=== PATIENT | male | born 1980 | race Hispanic/Latino ===

== ENCOUNTER 2021-03-01 17:11 | Emergency (ER) | payer SELFPAY ==
[2021-03-01] MEDS ORDERED: MORPHINE 4 MG/ML SYR ONE (20:47)
[2021-03-01] MEDS ORDERED: ONDANSETRON 4 MG/2 ML VIAL ONE (20:47)
[2021-03-01] MEDS ORDERED: CLINDAMYCIN 900MG/D5W 900 MG/50 ML IVPB IV ONE (20:47)
--- NOTE | 2021-03-01 21:03 | EDPHYS ---
Physician Documentation [facility] Name: Gama Hanley Age: 40 yrs Sex: Male : 1980 Arrival Date: 03/01/2021 Time: 17:14 Bed 30 Private MD: ED Physician Ranjit Avila HPI: 03/01 20:03 This 40 yrs old Male presents to ER via Ambulatory with complaints of Abscess, jmm Facial Swelling. 20:03 The patient presents with swelling. Onset: The symptoms/episode began/occurred jmm gradually, 3 day(s) ago. Duration: The symptoms are continuous, and are steadily getting worse. Modifying factors: The symptoms are alleviated by nothing, the symptoms are aggravated by nothing. Associated signs and symptoms: Pertinent positives: swelling, Pertinent negatives: fever. The patient has experienced similar episodes in the past, but today's symptoms are worse. Historical: - Allergies: 17:28 slobed; ll1 17:28 Dimetapp Cold-Allergy (PE); ll1 - PMHx: 17:28 Asthma; ll1 - PSHx: 17:28 None; ll1 - Immunization history:: Flu vaccine is not up to date. - Social history:: Smoking status: Patient reports the use of cigarette tobacco products, denies chronic smoking, but will smoke occasionally. ROS: 20:03 Constitutional: Negative for fever, chills, and weight loss, Cardiovascular: Negative jmm for chest pain, palpitations, and edema, Respiratory: Negative for shortness of breath, cough, wheezing, and pleuritic chest pain. 20:03 ENT: Positive for dental pain. 20:03 All other systems are negative. Exam: 20:03 Constitutional: This is a well developed, well nourished patient who is awake, alert, jmm and in no acute distress. Head/Face: atraumatic. Eyes: EOMI, no conjunctival erythema appreciated 20:03 Neck: Trachea midline, Supple Chest/axilla: Normal chest wall appearance and motion. Cardiovascular: Regular rate and rhythm. No edema appreciated Respiratory: Normal respirations, no respiratory distress appreciated Abdomen/GI: Non distended, soft Back: Normal ROM Skin: General appearance color normal MS/ Extremity: Moves all extremities, no obvious deformities appreciated, no edema noted to the lower extremities Neuro: Awake and alert, normal gait Psych: Behavior is normal, Mood is normal, Patient is cooperative and pleasant 20:03 ENT: Dental exam: gum swelling, that is moderate, specifically in the upper right first molar (#3), upper right second bicuspid (#4) and upper right first bicuspid (#5). Vital Signs: 17:26 BP 180 / 115; Pulse 88; Resp 17; Temp 99.4; Pulse Ox 95% ; Weight 104.33 kg; Height 5 ll1 ft. 11 in. (180.34 cm); Pain 9/10; 17:26 Body Mass Index 32.08 (104.33 kg, 180.34 cm) ll1 MDM: 20:03 Patient medically screened. timbo 21:01 Data reviewed: vital signs, nurses notes. Counseling: I had a detailed discussion with melisa the patient and/or guardian regarding: the historical points, exam findings, and any diagnostic results supporting the discharge/admit diagnosis, the need for outpatient follow up, to return to the emergency department if symptoms worsen or persist or if there are any questions or concerns that arise at home. ED course: Patient is alert and non toxic in appearance. I do not suspect sepsis, ludwigs. Patient advised to follow up with pcp and otherwise given strict return precautions. patient understood and agrees with the plan of care. . 03/01 20:14 Order name: Saline Lock; Complete Time: 20:59 melisa Administered Medications: 20:45 Drug: morphine 4 mg Route: IVP; Site: right antecubital; iw 20:45 Drug: Zofran (Ondansetron) 4 mg Route: IVP; Site: right antecubital; iw 20:53 Drug: Clindamycin 900 mg Route: IVPB; Infused Over: 30 mins; Site: right antecubital; iw Disposition: 03/02 12:21 Co-signature as Attending Physician, Ranjit Avila MD I agree with the assessment and [facility] plan of care. Disposition: 03/01/21 21:02 Discharged to Home. Impression: Dental Abscess. - Condition is Stable. - Discharge Instructions: Dental Abscess. - Prescriptions for Peridex 0.12 % Mucous Membrane mouthwash - place 15 milliliter by MUCOUS MEMBRANE route 2 times per day after brushing teeth, swish in mouth for 30 seconds then spit out; 1 bottle. Clindamycin HCl 300 mg Oral Capsule - take 1 capsule by ORAL route every 6 hours for 10 days; 40 capsule. Tylenol- Codeine #3 300-30 mg Oral Tablet - take 1 tablet by ORAL route every 4-6 hours As needed; 12 tablet. - Medication Reconciliation Form, Thank You Letter, Antibiotic Education, Prescription Opioid Use form. - Follow up: Private Physician; When: 2 - 3 days; Reason: Recheck today's complaints, Continuance of care, Re-evaluation by your physician. Signatures: Ranjit Avila MD MD cha Mickail, Joel, PA PA jmm Williams, Irene, RN RN iw Angelica Tavreas RN RN ll1 Corrections: (The following items were deleted from the chart) 03/01 21:51 21:02 03/01/2021 21:02 Discharged to Home. Impression: Dental Abscess. Condition is iw Stable. Forms are Medication Reconciliation Form, Thank You Letter, Antibiotic Education, Prescription Opioid Use. Follow up: Private Physician; When: 2 - 3 days; Reason: Recheck today's complaints, Continuance of care, Re-evaluation by your physician. melisa
--- NOTE | 2021-03-01 21:03 | ER ---
Nurse's Notes [facility] Name: Gama Hanley Age: 40 yrs Sex: Male : 1980 Arrival Date: 03/01/2021 Time: 17:14 Bed 30 Private MD: Diagnosis: Dental Abscess Presentation: 03/01 17:26 Chief complaint: Patient states: R upper jaw tooth pain for 1 week. R sided facial ll1 swelling for 3 days, worse for the past two days. No known fever. Coronavirus screen: Client denies travel out of the [place] in the last 14 days. Coronavirus screen: At this time, the client does not indicate any symptoms associated with coronavirus-19. Ebola Screen: Patient denies travel to an Ebola-affected area in the 21 days before illness onset. Initial Sepsis Screen: Does the patient meet any 2 criteria? No. Patient's initial sepsis screen is negative. Does the patient have a suspected source of infection? Yes: Other: tooth pain. Risk Assessment: Do you want to hurt yourself or someone else? Patient reports no desire to harm self or others. Onset of symptoms was February 22, 2021. 17:26 Method Of Arrival: Ambulatory ll1 17:26 Acuity: LIANA 3 ll1 Triage Assessment: 21:50 General: Appears in no apparent distress. Behavior is calm, cooperative. iw Historical: - Allergies: 17:28 slobed; ll1 17:28 Dimetapp Cold-Allergy (PE); ll1 - PMHx: 17:28 Asthma; ll1 - PSHx: 17:28 None; ll1 - Immunization history:: Flu vaccine is not up to date. - Social history:: Smoking status: Patient reports the use of cigarette tobacco products, denies chronic smoking, but will smoke occasionally. Screenin:50 Abuse screen: Denies threats or abuse. Denies injuries from another. Nutritional iw screening: No deficits noted. Tuberculosis screening: No symptoms or risk factors identified. Fall Risk None identified. Assessment: 21:00 General: Appears in no apparent distress. Behavior is calm, cooperative. Pain: iw Complains of pain in upper right first bicuspid (#5) and upper right second bicuspid (#4) and upper right first molar (#3). Neuro: Level of Consciousness is awake, alert, obeys commands, Oriented to person, place, time, situation, Moves all extremities. Cardiovascular: Patient's skin is warm and dry. Respiratory: Respiratory effort is even, unlabored, Respiratory pattern is regular, symmetrical. EENT: Dental caries noted in upper right second bicuspid (#4) and upper right first molar (#3) and upper right first bicuspid (#5). Musculoskeletal: Range of motion: intact in all extremities. Vital Signs: 17:26 BP 180 / 115; Pulse 88; Resp 17; Temp 99.4; Pulse Ox 95% ; Weight 104.33 kg; Height 5 ll1 ft. 11 in. (180.34 cm); Pain 9/10; 17:26 Body Mass Index 32.08 (104.33 kg, 180.34 cm) ll1 ED Course: 17:14 Patient arrived in ED. am2 17:28 Triage completed. ll1 17:29 Arm band placed on. 1 19:58 Yg Frazier PA is PHCP. [facility] 19:58 Ranjit Avila MD is Attending Physician. kristel 20:20 Candis Stanton, RN is Primary Nurse. iw 21:00 Patient has correct armband on for positive identification. iw 21:50 No provider procedures requiring assistance completed. IV discontinued, intact, iw bleeding controlled, No redness/swelling at site. Pressure dressing applied. Administered Medications: 20:45 Drug: morphine 4 mg Route: IVP; Site: right antecubital; iw 20:45 Drug: Zofran (Ondansetron) 4 mg Route: IVP; Site: right antecubital; iw 20:53 Drug: Clindamycin 900 mg Route: IVPB; Infused Over: 30 mins; Site: right antecubital; iw Outcome: 21:02 Discharge ordered by . [facility] 21:50 Discharged to home ambulatory. iw 21:50 Condition: good 21:50 Discharge instructions given to patient, Instructed on discharge instructions, follow up and referral plans. medication usage, Demonstrated understanding of instructions, follow-up care, medications, Prescriptions given X 2. 21:51 Patient left the ED. iw Signatures: Yg Frazier PA PA jmm Williams, Irene, RN VAN Latisha Urena 2 Angelica Taveras RN RN [facility]
[2021-03-01 22:03] VITALS: BP 180/115; TEMP 99.4; O2SAT 95
== END 2021-03-01 21:51 | disposition home or self-care (01) ==
LOC: ER 17:11
DX: K04.7 Periapical abscess without sinus (principal); F17.210 Nicotine dependence, cigarettes, uncomplicated; Z88.8 Allergy status to other drugs, medicaments and biological substances
CPT/HCPCS: 96374; 96375; 99283; J2405

== ENCOUNTER 2025-03-03 18:24 | Emergency (ER) | payer SELFPAY ==
--- NOTE | 2025-03-03 18:54 | ER ---
Nurse's Notes [facility] Name: Gama Hanley Age: 44 yrs Sex: Male : 1980 Arrival Date: 03/03/2025 Time: 18:24 Bed 6 Private MD: Diagnosis: Facial cellulitis;Dental caries Presentation: 03/03 18:42 Chief complaint: Left sided facial swelling x 2 days. Coronavirus screen: At this time, hb the client does not indicate any symptoms associated with coronavirus-19. Ebola Screen: No symptoms or risks identified at this time. Initial Sepsis Screen: Does the patient meet any 2 criteria? No. Patient's initial sepsis screen is negative. Does the patient have a suspected source of infection? No. Patient's initial sepsis screen is negative. Risk Assessment: Do you want to hurt yourself or someone else? Patient reports no desire to harm self or others. Onset of symptoms was March 02, 2025. 18:42 Method Of Arrival: Ambulatory hb 18:42 Acuity: LIANA 3 hb Triage Assessment: 19:08 General: Appears in no apparent distress. Behavior is calm, cooperative. Pain: Denies kd3 pain. Neuro: Level of Consciousness is awake, alert, obeys commands, Oriented to person, place, time, situation. Cardiovascular: Patient's skin is warm and dry. Respiratory: Airway is patent Trachea midline Respiratory effort is even, unlabored, Respiratory pattern is regular, symmetrical. Historical: - Allergies: 18:44 Dimetapp Cold-Allergy (PE); hb 18:44 slobed; hb - Home Meds: 18:44 None [Active]; hb - PMHx: 18:44 Asthma; hb - PSHx: 18:44 None; hb - Immunization history:: Adult Immunizations up to date. - Infectious Disease History:: Denies. - Social history:: Smoking status: Patient reports the use of cigarette tobacco products, denies chronic smoking, but will smoke occasionally. - Family history:: not pertinent. Screenin:07 [facility] ED Fall Risk Assessment (Adult) History of falling in the last 3 months, kd3 including since admission No falls in past 3 months (0 pts) Confusion or Disorientation No (0 pts) Intoxicated or Sedated No (0 pts) Impaired Gait No (0 pts) Mobility Assist Device Used No (0 pt) Altered Elimination No (0 pt) Score/Fall Risk Level 0 - 2 = Low Risk Maintained a safe environment. Abuse screen: Denies threats or abuse. Denies injuries from another. Nutritional screening: No deficits noted. Tuberculosis screening: No symptoms or risk factors identified. Vital Signs: 18:42 BP 137 / 95; Pulse 79; Resp 16; Temp 98.9(O); Pulse Ox 100% on R/A; Weight 106.59 kg; hb Height 5 ft. 11 in. ; Pain 5/10; 18:42 Body Mass Index 32.78 (106.59 kg, 180.34 cm) hb 18:42 Pain Scale: Adult hb ED Course: 18:29 Patient arrived in ED. gl 18:30 Anibal Samuels MD is Attending Physician. rt 18:44 Triage completed. hb 18:44 Arm band placed on. hb 19:02 Carole Leon RN is Primary Nurse. kd3 19:08 Patient has correct armband on for positive identification. Provided Education on: kd3 antibiotic . 19:08 No provider procedures requiring assistance completed. Patient did not have IV access kd3 during this emergency room visit. Administered Medications: 19:07 Drug: Amoxicillin-Clavulanate PO 875 mg PO once Route: PO; kd3 Medication: 19:08 VIS not applicable for this client. kd3 Outcome: 18:54 Discharge ordered by . rt 19:08 Discharged to home ambulatory, with family, kd3 19:08 Condition: stable 19:08 Discharge instructions given to patient, family, Instructed on discharge instructions, follow up and referral plans. medication usage, Demonstrated understanding of instructions, follow-up care, medications, Prescriptions given X 1, 19:09 Patient left the ED. kd3 Signatures: More Freeman RN RN Carole Leon RN RN kd3 Anibal Samuels MD MD rt Estelita Koo, Reg Reg gl
--- NOTE | 2025-03-03 18:55 | EDPHYS ---
Physician Documentation [facility] Name: Gama Hanley Age: 44 yrs Sex: Male : 1980 Arrival Date: 03/03/2025 Time: 18:24 Bed 6 Private MD: ED Physician Anibal Samuels HPI: 03/03 19:30 This 44 yrs old Male presents to ER via Ambulatory with complaints of Abscess. rt 19:30 Patient presents to the ED with 2 days of left-sided facial swelling. Reports having rt multiple dental cavities. The patient states that he had similar symptoms previously, resolved with amoxicillin. Denies other acute complaints at this time, symptoms are mild in severity, no other aggravating or alleviating factors.. Historical: - Allergies: 18:44 Dimetapp Cold-Allergy (PE); hb 18:44 slobed; hb - Home Meds: 18:44 None [Active]; hb - PMHx: 18:44 Asthma; hb - PSHx: 18:44 None; hb - Immunization history:: Adult Immunizations up to date. - Infectious Disease History:: Denies. - Social history:: Smoking status: Patient reports the use of cigarette tobacco products, denies chronic smoking, but will smoke occasionally. - Family history:: not pertinent. ROS: 19:30 Constitutional: Negative for fever, chills, and weight loss, Cardiovascular: Negative rt for chest pain, palpitations, and edema, Respiratory: Negative for shortness of breath, cough, wheezing, and pleuritic chest pain, Abdomen/GI: Negative for abdominal pain, nausea, vomiting, diarrhea, and constipation, MS/Extremity: Negative for injury and deformity, Skin: Negative for injury, rash, and discoloration, 19:30 ENT: Positive for Facial pain, dental cavities, Exam: 19:30 Constitutional: This is a well developed, well nourished patient who is awake, alert, rt and in no acute distress. Respiratory: Lungs have equal breath sounds bilaterally, clear to auscultation and percussion. No rales, rhonchi or wheezes noted. No increased work of breathing, no retractions or nasal flaring. Abdomen/GI: Soft, non-tender, with normal bowel sounds. No distension or tympany. No guarding or rebound. No evidence of tenderness throughout. Skin: Warm, dry with normal turgor. Normal color with no rashes, no lesions, and no evidence of cellulitis. 19:30 Head/face: Mild left-sided facial swelling noted, minimal tenderness, no fluctuance. 19:30 ENT: Multiple dental cavities noted, no signs of drainable abscess, no trismus. Vital Signs: 18:42 BP 137 / 95; Pulse 79; Resp 16; Temp 98.9(O); Pulse Ox 100% on R/A; Weight 106.59 kg; hb Height 5 ft. 11 in. ; Pain 5/10; 18:42 Body Mass Index 32.78 (106.59 kg, 180.34 cm) hb 18:42 Pain Scale: Adult hb MDM: 18:47 Medical Screening Exam initiated rt 19:30 Differential diagnosis: Facial cellulitis, dental infection. Data reviewed: vital rt signs, nurses notes. Test considered but Not performed: Other Details Stable vital signs, only mild appearing infection, do not believe that labs, advanced imaging are indicated. Care significantly affected by the following chronic conditions: Asthma. Counseling: I had a detailed discussion with the patient and/or guardian regarding the historical points, exam findings, and any diagnostic results supporting the discharge/admit diagnosis, the need for outpatient follow up, to return to the emergency department if symptoms worsen or persist or if there are any questions or concerns that arise at home. Administered Medications: 19:07 Drug: Amoxicillin-Clavulanate PO 875 mg PO once Route: PO; kd3 Disposition Summary: 03/03/25 18:54 Discharge Ordered Notes: Location: Home rt Problem: new rt Symptoms: are unchanged rt Condition: Stable rt Diagnosis - Facial cellulitis rt - Dental caries rt Followup: rt - With: Private Physician - When: 2 - 3 days - Reason: Discharge Instructions: - Discharge Summary Sheet rt - Cellulitis, Adult rt - Dental Caries, Adult rt Forms: - Medication Reconciliation Form rt - Antibiotic Education rt - Prescription Opioid Use rt - Patient Portal Instructions rt - Leadership Thank You Letter rt Prescriptions: - Augmentin 875-125 mg Oral Tablet - take 1 tablet ORAL route every 12 hours for 10 days; 20 tablet; Refills: 0, rt Product Selection Permitted Signatures: More Freeman RN RN Carole Leon RN RN kd3 Anibal Samuels MD MD rt
[2025-03-03] MEDS ORDERED: AMOX/K CLAV 875 MG TAB ONE (19:03)
[2025-03-03 19:46] VITALS: BP 137/95; TEMP 98.9; O2SAT 100
== END 2025-03-03 19:09 | disposition home or self-care (01) ==
LOC: ER 18:24
DX: L03.211 Cellulitis of face (principal); K02.9 Dental caries, unspecified